=== PATIENT | male | born 1930 | race Caucasian/White ===

== ENCOUNTER 2017-10-29 11:51 | Inpatient (IN) ==
--- NOTE | 2017-10-29 13:19 | ED ---
HPI General Chief complaint: Skin/Abscess/Foreign Body Stated complaint: animal bite/skin Time Seen by Provider: 10/29/17 12:48 Source: patient Limitations: no limitations History of Present Illness HPI narrative: 88-year-old male presents to the emergency department for evaluation of erythema and pain to his left medial ankle that started on , 3 days ago. Patient was seen at [facility] on Monday and had an ultrasound, chest x-ray, labs completed. He was discharged prescription for clindamycin which he took yesterday. He is here with his daughter. She states that she feels the erythema has worsened, but the patient states that has improved and the pain has much improved. He reports shortness of breath which he states is chronic for him due to COPD. He is on oxygen at home. He states the pain to his left ankle is minimal, 2/10, aching, worse with ambulation and movement. Patient denies any chest pain. No other symptoms or complaints. Moderate severity. MD complaint: discoloration (erythema) Onset (ago): day(s) (3) Location: L foot Severity: moderate Severity scale (1-10): 2 Quality: aching Pain Consistency: constant Relieving factors: immobilization and medication Exacerbating factors: movement Associated symptoms: shortness of breath Treatments prior to arrival: antibiotic (currently on clindamycin) Related Data Home Medications Medication Instructions Recorded Confirmed albuterol sulfate [ProAir HFA] 2 puff INHALATION BID 10/29/17 10/29/17 amlodipine [Norvasc] 5 mg PO DAILY 10/29/17 10/29/17 aspirin [Aspirin Low Dose] 81 mg PO DAILY 10/29/17 10/29/17 budesonide-formoterol [Symbicort] 2 puff INHALATION BID 10/29/17 10/29/17 clindamycin HCl 150 mg PO BID 10/29/17 10/29/17 metoprolol tartrate [Lopressor] 50 mg PO BID 10/29/17 10/29/17 ranitidine HCl [Zantac] 150 mg PO DAILY 10/29/17 10/29/17 tamsulosin [Flomax] 0.4 mg PO DAILY 10/29/17 10/29/17 Allergies Allergy/AdvReac Type Severity Reaction Status Date / Time Penicillins Allergy Severe Hives Verified 10/29/17 13:04 Review of Systems ROS Unobtainable All other systems reviewed negative except as stated in HPI [facility] History History Provided By: Patient and Family Member Medical History Medical History COPD (chronic obstructive pulmonary disease) (Acute) Hypertension (Acute) Lung cancer (Acute) Prostate disorder (Acute) Surgical History Surgical History H/O hernia repair (Acute) History of lung surgery (Acute) History of penile implant (Acute) Family History Family History Other Family history of acute myocardial infarction Family history of diabetes mellitus Social History Social History Substance History: No History of Abuse Second Hand Smoke Exposure: No Smoking Status: Former smoker Tobacco Type: Cigarettes Packs Per Day: 1 Cigarettes Per Day: 20.0 Number of Pack-Years (if former smoker): 71 Smoking End Date: 2002 How Often Do You Have a Drink Containing Alcohol: 4 or more times a week (2-3 beer daily, buys 18 pack) Recent Travel in [facility] within the Last 8 Weeks: No Recent Out of Country Travel within the Last 8 Weeks: No Exam Const General: cooperative, comfortable and no acute distress Nutritional Appearance: average body habitus Orientation: alert and awake HENMT Head: normal to inspection Eyes General: appearance normal, both eyes and all related structures Chest Chest: normal inspection of the chest Resp Effort & Inspection: able to speak in complete sentences Auscultation: wheezes expiratory wheezes and scattered wheezes Cardio Rate: regular rate Rhythm: regular rhythm GI Inspection: normal to inspection Palpation: soft and nontender Skin Trauma: no lacerations or abrasions and no punctures noted Neuro General: alert and awake Speech: speech normal Motor: muscle tone normal throughout Extrem General: full ROM and no calf tenderness Left lower extremity: full ROM and ankle Details: tenderness, swelling, normal ROM and other (erythema to left medial ankle) Psych Appearance: grossly normal Speech and Movement: speech and movement normal Affect: normal affect Attitude: cooperative Course Initial Documented Vital Signs Temperature 97.6 F 10/29/17 11:55 Pulse Rate 81 10/29/17 11:55 Respiratory Rate 15 10/29/17 11:55 Blood Pressure 130/60 10/29/17 11:55 Pulse Oximetry 91 L 10/29/17 11:55 Last Documented Vital Signs Temperature 98.0 F 10/29/17 16:00 Pulse Rate 76 10/29/17 16:52 Respiratory Rate 18 10/29/17 16:52 Blood Pressure 138/81 10/29/17 16:00 Pulse Oximetry 97 10/29/17 16:51 Medical Decision Making MDM Narrative Medical decision making narrative: A 8-year-old male presents to the emergency department for evaluation of erythema, swelling, pain to left medial ankle. He was seen on Monday at [facility] was placed on clindamycin. The patient states his symptoms are improving. He also reports shortness of breath. EKG, CBC, CMP, magnesium, CK, troponin, PTT, PT/INR, lactic acid, blood cultures 2, ultrasound of the left lower extremity, chest x-ray ordered and pending. Patient is given DuoNeb. EKG shows SR, HR 78, RBBB. CBC shows leukocytosis of 13.7, slight anemia of hgb 11.7, HCT 35.2. CMP shows hyperglycemia of 166, BUN 43, creatinine of 1.94. Magnesium is 2.2. CK is 55. Troponin is less than 0.02. Lactic acid is 2.5. PTT is 28.3. PT/INR is 10.2/1.0. US is negative for DVT. Chest x- ray was declined by patient as he just recently had a normal chest x-ray on Monday at [facility]. Dr. Ta, vascular surgeon, was in the pod when he heard the daughter talking about wanting to see a vascular surgeon. He examined patient and agrees the patient does not have an emergency vascular problem. He recommends IV antiboitics for cellulitis. Patient is given NS 1 L IV bolus, Vancomycin 1 gm IV. [place] hospitalists will be paged for admission. Lab Data Result diagrams: 10/29/17 13:15 10/29/17 13:15 Lab Results 10/29/17 10/29/17 10/29/17 Range/Units 13:15 13:15 13:15 WBC 13.7 H (4.0-11.0) th/mm3 RBC 3.88 L (4.50-5.90) mil/mm3 Hgb 11.7 L (13.0-17.0) gm/dL Hct 35.2 L (39.0-51.0) % MCV 90.7 (80.0-100.0) fL MCH 30.2 (27.0-34.0) pg MCHC 33.3 (32.0-36.0) % RDW 14.4 (11.6-17.2) % Plt Count 187 (150-450) th/mm3 MPV 9.5 (7.0-11.0) fL Neut % (Auto) 86.2 H (16.0-70.0) % Lymph % (Auto) 7.1 L (9.0-44.0) % [place] % (Auto) 6.6 (0.0-8.0) % Eos % (Auto) 0.0 (0.0-4.0) % Baso % (Auto) 0.1 (0.0-2.0) % Neut # (Auto) 11.8 H (1.8-7.7) th/mm3 Lymph # (Auto) 1.0 (1.0-4.8) th/mm3 [place] # (Auto) 0.9 (0.0-0.9) th/mm3 Eos # (Auto) 0.0 (0.0-0.4) th/mm3 Baso # (Auto) 0.0 (0.0-0.2) th/mm3 WBC Differential . Differential Comment Auto diff final PT (9.8-11.6) sec INR Ratio APTT (24.3-30.1) sec Sodium 140 (136-145) meq/L Potassium 4.9 (3.5-5.1) meq/L Chloride 105 (98-107) meq/L Carbon Dioxide 26.1 (21.0-32.0) meq/L Anion Gap 9 (5-15) meq/L BUN 43 H (7-18) mg/dL Creatinine 1.94 H (0.60-1.30) mg/dL Estimated GFR 33 L (>89) mL/min Random Glucose 166 H (74-106) mg/dL Lactic Acid 2.5 H (0.4-2.0) mmol/L Calcium 9.7 (8.5-10.1) mg/dL Magnesium (1.5-2.5) mg/dL Total Bilirubin 0.3 (0.2-1.0) mg/dL AST 12 L (15-37) U/L ALT 14 (12-78) U/L Alkaline Phosphatase 62 (45-117) U/L Total Creatine Kinase (39-308) U/L Troponin I (0.02-0.05) ng/mL Total Protein 7.6 (6.4-8.2) g/dL Albumin 3.0 L (3.4-5.0) g/dL 10/29/17 10/29/17 10/29/17 Range/Units 13:15 13:15 16:30 WBC (4.0-11.0) th/mm3 RBC (4.50-5.90) mil/mm3 Hgb (13.0-17.0) gm/dL Hct (39.0-51.0) % MCV (80.0-100.0) fL MCH (27.0-34.0) pg MCHC (32.0-36.0) % RDW (11.6-17.2) % Plt Count (150-450) th/mm3 MPV (7.0-11.0) fL Neut % (Auto) (16.0-70.0) % Lymph % (Auto) (9.0-44.0) % [place] % (Auto) (0.0-8.0) % Eos % (Auto) (0.0-4.0) % Baso % (Auto) (0.0-2.0) % Neut # (Auto) (1.8-7.7) th/mm3 Lymph # (Auto) (1.0-4.8) th/mm3 [place] # (Auto) (0.0-0.9) th/mm3 Eos # (Auto) (0.0-0.4) th/mm3 Baso # (Auto) (0.0-0.2) th/mm3 WBC Differential Differential Comment PT 10.2 (9.8-11.6) sec INR 1.0 Ratio APTT 28.3 (24.3-30.1) sec Sodium (136-145) meq/L Potassium (3.5-5.1) meq/L Chloride (98-107) meq/L Carbon Dioxide (21.0-32.0) meq/L Anion Gap (5-15) meq/L BUN (7-18) mg/dL Creatinine (0.60-1.30) mg/dL Estimated GFR (>89) mL/min Random Glucose (74-106) mg/dL Lactic Acid 1.1 (0.4-2.0) mmol/L Calcium (8.5-10.1) mg/dL Magnesium 2.2 (1.5-2.5) mg/dL Total Bilirubin (0.2-1.0) mg/dL AST (15-37) U/L ALT (12-78) U/L Alkaline Phosphatase (45-117) U/L Total Creatine Kinase 55 (39-308) U/L Troponin I Less than 0.02 L (0.02-0.05) ng/mL Total Protein (6.4-8.2) g/dL Albumin (3.4-5.0) g/dL Imaging Data Radiologist's impression: ITS Impressions Venous Doppler Study 10/29/17 13:08 CONCLUSION: The study is negative for lower extremity deep venous thrombosis. Discharge Plan Discharge Disposition Patient Disposition: 30 Still Patient Physicians Team ED Provider: Rupal Hurtado ED Midlevel Provider: Jane Meredith Primary Care Provider: Stefanie Love Attending Provider: Diane Gustafson Other Providers: Flavia Ta Discharge Interventions Interventions: ED Discharge Assessment Last Done: 10/29/17 18:07 Vital Signs Last Done: 10/29/17 16:00 Status ED Status: Left Department Discharge Information Discharge Date/Time: 10/29/17 18:05
[2017-10-29 13:34] LABS: Baso % (Auto) 0.1 % (0.0-2.0); Hematocrit 35.2 % (39.0-51.0); Hemoglobin 11.7 gm/dL (13.0-17.0); Lymph % (Auto) 7.1 % (9.0-44.0); Mean Corpuscular HGB Conc 33.3 % (32.0-36.0); Mean Corpuscular Hemoglobin 30.2 pg (27.0-34.0); Mean Corpuscular Volume 90.7 fL (80.0-100.0); Mean Platelet Volume 9.5 fL (7.0-11.0); Mono # (Auto) 0.9 th/mm3 (0.0-0.9); Mono % (Auto) 6.6 % (0.0-8.0); Neut # (Auto) 11.8 th/mm3 (1.8-7.7); Neut % (Auto) 86.2 % (16.0-70.0); Platelet Count 187 th/mm3 (150-450); Red Blood Count 3.88 mil/mm3 (4.50-5.90); Red Cell Distribution Width 14.4 % (11.6-17.2); White Blood Count 13.7 th/mm3 (4.0-11.0)
[2017-10-29 13:42] LABS: Activated Partial Thrombo Time 28.3 sec (24.3-30.1); Prothrombin Time 10.2 sec (9.8-11.6)
[2017-10-29 14:08] LABS: Alanine Aminotransferase 14 U/L (12-78); Anion Gap 9 meq/L (5-15); Aspartate Aminotransferase 12 U/L (15-37); Blood Urea Nitrogen 43 mg/dL (7-18); Calcium 9.7 mg/dL (8.5-10.1); Carbon Dioxide 26.1 meq/L (21.0-32.0); Chloride 105 meq/L (98-107); Glomerular Filtration Rate 33 mL/min (>89); Glucose,Random 166 mg/dL (74-106); Potassium 4.9 meq/L (3.5-5.1); Sodium 140 meq/L (136-145)
[2017-10-29 14:11] LABS: Alkaline Phosphatase 62 U/L (45-117); Total Protein 7.6 g/dL (6.4-8.2)
--- NOTE | 2017-10-29 14:21 | P.PNCA ---
- Note Subjective/Hospital Course:: 10/29/2017 88-year-old gentleman was bitten by a cat week or 2 ago in the area of the left calf develop redness which then receded now came back he was seen at [facility] 3 days ago at which point according to his daughter it was a complete circus and anarchy and according to her she will never go to that hellhole again Now patient comes to our hospital with the cellulitis and erythema of the left leg extending from the ankle up to above the knee Physical examination reveals bilateral pretibial edema which is mild to moderate but there is clearly cellulitis and edema on the left more prominent than on the right No open wounds are noted Vascular exam reveals palpable femoral popliteal dorsalis pedis and posterior tibial pulses bilaterally despite about 60 year history of smoking. Capillary refill is intact Patient does not have acute vascular deficit or any vascular condition that would require immediate intervention. As far as cellulitis is concerned I would leave that up to medical doctors but considering that cat scratch disease can be a fairly recalcitrant problem and patient has not improved with p.o. antibiotics I would not be opposed to having this patient admitted and treated with IV antibiotics keeping a closer eye on what is transpiring We will follow Thanks Reed Objective:: Vital Signs - 24 hr 10/29/17 11:55 10/29/17 13:00 10/29/17 14:11 Temperature 97.6 F 98.1 F Pulse Rate 81 76 Respiratory Rate 15 20 Blood Pressure 130/60 134/70 Pulse Oximetry 91 L 98 98 Labs:: Laboratory Results - last 12 hr 10/29/17 10/29/17 10/29/17 13:15 13:15 13:15 WBC 13.7 H RBC 3.88 L Hgb 11.7 L Hct 35.2 L MCV 90.7 MCH 30.2 MCHC 33.3 RDW 14.4 Plt Count 187 MPV 9.5 Neut % (Auto) 86.2 H Lymph % (Auto) 7.1 L [place] % (Auto) 6.6 Eos % (Auto) 0.0 Baso % (Auto) 0.1 Neut # (Auto) 11.8 H Lymph # (Auto) 1.0 [place] # (Auto) 0.9 Eos # (Auto) 0.0 Baso # (Auto) 0.0 WBC Differential . Differential Comment Auto diff final PT 10.2 INR 1.0 APTT 28.3 Sodium 140 Potassium 4.9 Chloride 105 Carbon Dioxide 26.1 Anion Gap 9 BUN 43 H Creatinine 1.94 H Estimated GFR 33 L Random Glucose 166 H Calcium 9.7 Total Bilirubin 0.3 AST 12 L ALT 14 Alkaline Phosphatase 62 Total Protein 7.6 Albumin 3.0 L Result Diagrams: 10/29/17 13:15 10/29/17 13:15
[2017-10-29] MEDS ORDERED: Vancomycin Inj 1 GM/200 ML PIGGYBACK IV.SIG ONE (14:22)
--- NOTE | 2017-10-29 14:26 | US ---
EXAM DATE: 10/29/2017 2:19 PM EDT AGE/SEX: 88 years / Male INDICATIONS: Left leg pain. CLINICAL DATA: This is the patient's initial encounter. Patient reports that signs and symptoms have been present for 3 days and indicates a pain score of 5/10. MEDICAL/SURGICAL HISTORY: Hypertension. Chronic obstructive pulmonary disease. Lung cancer. Pr ostate disorder. Hernia. . Hernia repair. Lung surgery. Penile implant. COMPARISON: No prior exams available for comparison. TECHNIQUE: Venous ultrasound of both lower extremities was performed from the inguinal ligament to t he proximal calf. Real-time, color Doppler and spectral tracing, compression and augmentation techni ques were used. FINDINGS: Normal compression of the deep venous system from the inguinal region to the proximal calf . No echogenic clot is seen. Normal response of the venous system to augmentation and respiration. CONCLUSION: The study is negative for lower extremity deep venous thrombosis. Electronically signed by: Omari Quiroz MD 10/29/2017 2:24 PM EDT
[2017-10-29] MEDS ORDERED: Vancomycin Inj 1,000 MG in Sodium Chlor 0.9% Inj 250 ML IV.SIG ONE (14:30)
[2017-10-29] MEDS ORDERED: Sod Chloride 0.9% Inj 1,000 ML IV.SIG ONE (14:54)
[2017-10-29 16:12] LABS: Creatine Kinase 55 U/L (39-308); Magnesium 2.2 mg/dL (1.5-2.5)
[2017-10-29] MEDS ORDERED: Acetaminophen 325 MG Tablet PO PRN (18:02)
[2017-10-29] MEDS ORDERED: Bisacodyl 10 MG Supp RECTAL PRN (18:02)
--- NOTE | 2017-10-29 18:06 | P.HP ---
History of Present Illness Service: [facility] Primary Care Physician: Stefanie Love DO Chief Complaint: Left ankle pain, left ankle erythema, edema History of Present Illness: Patient is an 88-year-old male with primary medical history of COPD, HTN, lung cancer with thoracotomy, prostate disorder who came into the hospital for evaluation of left ankle erythema, edema, pain. Patient states that he was bitten by their cat at the back of his leg in August which he did not pay attention to. States that he noticed increased edema, erythema and pain on the left ankle. States that it impedes his mobility. As per patient, this has been an ongoing problem for the past several weeks, where in he went to the [place] and he was given antibiotics for 2 weeks and go to the emergency department if it has not improved. Last Monday patient went to [facility], as he states that the erythema, edema, pain has not significantly improved. He had an ultrasound, chest x-ray, and labs during his emergency room visit and he was sent home with clindamycin. Patient states that his ankle movement has improved, pain has also improved with the use of antibiotics but was concerned that it impedes his walking. Pain is 5/10, dull, aching, aggravated by ambulation and movement, relieved by pain medication. Reports use of oxygen 24/, patient has right lung nodules, left thoracotomy. Chronic cough, chronic sputum production that is whitish has been reported. Otherwise, denies chest pain, palpitations, headaches, dizziness. Denies fevers , chills, n/v/d. Denies dysuria. Venous Doppler negative WBC 13.7, lactic acid 2.5, creatinine 1.94 - Diagnosis (1) Cellulitis of left ankle - Inpatient Certification If this patient has been admitted as an Inpatient: I certify that the inpatient services were ordered in accordance with Medicare regulations governing the order. This includes certification that hospital inpatient services are reasonable and necessary and in the case of services not specified as inpatient-only under 42 CFR 419.22(n), that they are appropriately provided as inpatient services in accordance to with the 2-midnight benchmark under 43 CFR 412.3(e) Estimated Total Length of Stay (Days): 3 Plans for Post Hospital Care: Home Review of Systems All other systems reviewed negative except as stated in [facility] - History History Provided By: Patient, Family Member - Medical History Medical History: Medical History (Last Reviewed 10/29/17 @ 13:34 by Marialuisa Lomeli) COPD (chronic obstructive pulmonary disease) Hypertension Lung cancer Prostate disorder - Surgical History Surgical History: Surgical History (Last Updated 10/29/17 @ 13:37 by Marialuisa Lomeli) H/O hernia repair History of lung surgery History of penile implant - Family History Family History: Family History (Last Updated 10/29/17 @ 17:49 by THEO Brasher) Other Family history of acute myocardial infarction Family history of diabetes mellitus - Tobacco History Second Hand Smoke Exposure: No Tobacco Use In Past 30 Days: No Smoking Status: Former smoker Tobacco Type: Cigarettes Packs Per Day: 1 Number of Pack Years (if former smoker): 71 Smoking End Date: 2002 - Alcohol History How Often Do You Have a Drink Containing Alcohol: 4 or more times a week (2-3 beer daily, buys 18 pack) - Substance Use History Substance History: No History of Abuse - Travel History Recent Travel in the [place] Within the Last 8 Weeks: No Recent Travel Out of the Country Within the Last 8 Weeks: No - Immunization History Tetanus Immunization: >5 Years Hx Influenza Vaccine This Season: No Medications and Allergies Active Medications: Active Medications Sodium Chloride (Ns Flush) 2 ml IV.FLUSH PRN PRN PRN Reason: FLUSH AFTER USING IV ACCESS Last Admin: 10/29/17 13:18 Dose: 2 ml Allergies Allergy/AdvReac Type Severity Reaction Status Date / Time Penicillins Allergy Severe Hives Verified 10/29/17 13:04 Home Medications Medication Instructions Recorded Confirmed Type albuterol sulfate [ProAir HFA] 2 puff INHALATION BID 10/29/17 10/29/17 History amlodipine [Norvasc] 5 mg PO DAILY 10/29/17 10/29/17 History aspirin [Aspirin Low Dose] 81 mg PO DAILY 10/29/17 10/29/17 History budesonide-formoterol [Symbicort] 2 puff INHALATION BID 10/29/17 10/29/17 History clindamycin HCl 150 mg PO BID 10/29/17 10/29/17 History metoprolol tartrate [Lopressor] 50 mg PO BID 10/29/17 10/29/17 History ranitidine HCl [Zantac] 150 mg PO DAILY 10/29/17 10/29/17 History tamsulosin [Flomax] 0.4 mg PO DAILY 10/29/17 10/29/17 History Exam Vital signs: Vital Signs 10/29/17 11:55 10/29/17 13:00 10/29/17 14:11 Temperature 97.6 F 98.1 F Pulse Rate 81 76 Respiratory Rate 15 20 Blood Pressure 130/60 134/70 Pulse Oximetry 91 L 98 98 10/29/17 16:00 10/29/17 16:51 10/29/17 16:52 Temperature 98.0 F Pulse Rate 78 76 Respiratory Rate 22 18 Blood Pressure 138/81 Pulse Oximetry 97 97 Intake & Output 10/28/17 10/29/17 10/29/17 18:59 06:59 18:59 Weight 70.3 kg Narrative: GENERAL: This is a well-nourished, well-developed patient, in no apparent distress. SKIN: Warm and dry. HEENT: Normocephalic. Pupils equal round and reactive. Nose without bleeding. Airway patent. NECK: Trachea midline. No JVD. Supple. CARDIOVASCULAR: Regular rate and rhythm without murmurs, gallops, or rubs. RESPIRATORY: Moderate air entry. Diminished left side. Expiratory wheezes. GASTROINTESTINAL: Abdomen soft, non-tender, nondistended. Bowel Sounds normoactive x4. MUSCULOSKELETAL: Extremities without clubbing, cyanosis. Left ankle trace edema , erythema present, warm to touch NEUROLOGICAL: Awake and alert. Oriented to place, person. No focal neuro deficit. Moves all extremities. Normal speech. Results - Labs CBC & Chem 7: 10/29/17 13:15 10/29/17 13:15 Labs: Laboratory Results - last 24 hr 10/29/17 10/29/17 10/29/17 13:15 13:15 13:15 WBC 13.7 H RBC 3.88 L Hgb 11.7 L Hct 35.2 L MCV 90.7 MCH 30.2 MCHC 33.3 RDW 14.4 Plt Count 187 MPV 9.5 Neut % (Auto) 86.2 H Lymph % (Auto) 7.1 L [place] % (Auto) 6.6 Eos % (Auto) 0.0 Baso % (Auto) 0.1 Neut # (Auto) 11.8 H Lymph # (Auto) 1.0 [place] # (Auto) 0.9 Eos # (Auto) 0.0 Baso # (Auto) 0.0 WBC Differential . Differential Comment Auto diff final PT INR APTT Sodium 140 Potassium 4.9 Chloride 105 Carbon Dioxide 26.1 Anion Gap 9 BUN 43 H Creatinine 1.94 H Estimated GFR 33 L Random Glucose 166 H Lactic Acid 2.5 H Calcium 9.7 Magnesium Total Bilirubin 0.3 AST 12 L ALT 14 Alkaline Phosphatase 62 Total Creatine Kinase Troponin I Total Protein 7.6 Albumin 3.0 L 10/29/17 10/29/17 10/29/17 13:15 13:15 16:30 WBC RBC Hgb Hct MCV MCH MCHC RDW Plt Count MPV Neut % (Auto) Lymph % (Auto) [place] % (Auto) Eos % (Auto) Baso % (Auto) Neut # (Auto) Lymph # (Auto) [place] # (Auto) Eos # (Auto) Baso # (Auto) WBC Differential Differential Comment PT 10.2 INR 1.0 APTT 28.3 Sodium Potassium Chloride Carbon Dioxide Anion Gap BUN Creatinine Estimated GFR Random Glucose Lactic Acid 1.1 Calcium Magnesium 2.2 Total Bilirubin AST ALT Alkaline Phosphatase Total Creatine Kinase 55 Troponin I Less than 0.02 L Total Protein Albumin - Imaging Impressions Venous Doppler Study 10/29/17 13:08 CONCLUSION: The study is negative for lower extremity deep venous thrombosis. Caprini VTE Risk Assessment Caprini VTE Risk Assessment: Moderate/High Risk (score >= 2) Caprini Risk Assessment Model: Point Value = 1 Point Value = 2 Point Value = 3 Point Value = 5 Age 41-60 Minor surgery BMI > 25 kg/m2 Swollen legs Varicose veins or History of unexplained or recurrent spontaneous Oral contraceptives or hormone replacement Sepsis (< 1 month) Serious lung disease, including pneumonia (< 1 month) Abnormal pulmonary function Acute myocardial infarction Congestive heart failure (< 1 month) History of inflammatory bowel disease Medical patient at bed rest Age 61-74 Arthroscopic surgery Major open surgery (> 45 min) Laparoscopic surgery (> 45 min) Malignancy Confined to bed (> 72 hours) Immobilizing plaster cast Central venous access Age >= 75 History of VTE Family history of VTE Factor V Leiden Prothrombin [id number] Lupus anticoagulant Anticardiolipin antibodies Elevated serum homocysteine Heparin-induced thrombocytopenia Other congenital or acquired thrombophilia Stroke (< 1 month) Elective arthroplasty Hip, pelvis, or leg fracture Acute spinal cord injury (< 1 month) Prophylaxis Regimen: Total Risk Factor Score Risk Level Prophylaxis Regimen 0-1 Low Early ambulation 2 Moderate Order ONE of the following: *Sequential Compression Device (SCD) *Heparin 5000 units SQ BID 3-4 Higher Order ONE of the following medications: *Heparin 5000 units SQ TID *Enoxaparin/Lovenox 40 mg SQ daily (WT < 150 kg, CrCl > 30 mL/min) *Enoxaparin/Lovenox 30 mg SQ daily (WT < 150 kg, CrCl > 10-29 mL/min) *Enoxaparin/Lovenox 30 mg SQ BID (WT < 150 kg, CrCl > 30 mL/min) AND/OR *Sequential Compression Device (SCD) 5 or more Highest Order ONE of the following medications: *Heparin 5000 units SQ TID (Preferred with Epidurals) *Enoxaparin/Lovenox 40 mg SQ daily (WT < 150 kg, CrCl > 30 mL/min) *Enoxaparin/Lovenox 30 mg SQ daily (WT < 150 kg, CrCl > 10-29 mL/min) *Enoxaparin/Lovenox 30 mg SQ BID (WT < 150 kg, CrCl > 30 mL/min) AND *Sequential Compression Device (SCD) Assessment and Plan - Assessment (1) Cellulitis of left ankle Code(s): L03.116 - Cellulitis of left lower limb Status: Acute - Plan Patient is an 88-year-old male with primary medical history of COPD, HTN, lung cancer with thoracotomy, prostate disorder who came into the hospital for evaluation of left ankle erythema, edema, pain. SIRS, sepsis secondary to left ankle cellulitis Severe sepsis, organ dysfunction -WBC 13.7, lactic acid 2.5, creatinine 1.94 -Monitor Labs -US venous Doppler negative -Check Blood Cultures, follow-up results -Lactic Acid 2.5, repeat 1.1 -IV Fluids -IV Antibiotics Vancomycin, continue -Telemetry -Supportive Care Tylenol for fevers. Pain management with [place], IV morphine breakthrough pain -CV surgery consulted appreciate recommendations. -PT eval and treat COPD, history of lung cancer Mild exacerbation -Moderate expiratory wheezes -Continue O2 nasal cannula to maintain O2 sat greater than 90% -Duo nebs, Symbicort twice daily -Monitor respiratory status HTN -Continue with home medications amlodipine 5 mg daily, ASA 81 mg daily, metoprolol 50 mg twice daily -Monitor BP trend BPH -Continue home medication Flomax DVT prop SCDs Code Status: Full Code Discussed Condition With: Patient, nursing Discharge Planning: Plan to DC home when clinically improved.
[2017-10-29] MEDS ORDERED: Naloxone Inj 0.4 MG/ML Vial IV.PUSH PRN (18:09)
[2017-10-29] MEDS ORDERED: Morphine Inj 4 MG/ML Vial IV.PUSH PRN (18:09)
[2017-10-29] MEDS ORDERED: Vancomycin Consult Pharmacy 1 EACH OTHER SCH (18:13)
[2017-10-29] MEDS: Sod Chloride 0.9% Inj 1,000 ML IV.CONT SCH (21:56)
[2017-10-29] MEDS: Metoprolol Tartrate 50 MG Tablet PO SCH (21:57)
[2017-10-29] MEDS: Senna/Docusate Sodium 8.6/50 MG Tablet PO SCH (21:57)
[2017-10-29] MEDS: Budesonide-Formoterol 160/4.5 MCG 6 GM Inhaler INH SCH (21:57)
[2017-10-29] MEDS ORDERED: LORazepam 1 MG Tablet PO PRN (22:16)
[2017-10-29] MEDS ORDERED: Haloperidol Inj 5 MG/ML Ampul IV.PUSH PRN (22:16)
[2017-10-29] MEDS: MethylPREDNISolone Sod Succinate Inj 40 MG/ML Vial IV.PUSH SCH (23:38)
[2017-10-30] MEDS ORDERED: Vancomycin Inj 1 GM/200 ML PIGGYBACK IV.SIG SCH (02:00)
--- NOTE | 2017-10-30 05:11 | XR ---
EXAM DATE: 10/30/2017 4:08 AM EDT AGE/SEX: 88 years / Male INDICATIONS: Shortness of breath. CLINICAL DATA: This is the patient's initial encounter. Patient reports that signs and symptoms have been present for 1 day and indicates a pain score of 0/10. MEDICAL/SURGICAL HISTORY: . Hypertension. Chronic obstructive pulmonary disease. Lung cancer. P rostate disorder. Hernia. . Hernia repair. Lung surgery. Penile implant COMPARISON: No prior exams available for comparison. FINDINGS: There is elevation and blunting of the costophrenic angle on the left side. The right hemidiaphragm i s well delineated. There are small nodular opacity seen at the periphery of both lungs measuring 6 mm or less. The heart is normal size. Mild curvature of the midthoracic spine convex towards the left. CONCLUSION: 1. Probable small left pleural effusion. 2. Multiple nodular densities 6 mm or less in both lungs. Electronically signed by: Serafin Lopez MD 10/30/2017 5:09 AM EDT
[2017-10-30] MEDS: MethylPREDNISolone Sod Succinate Inj 40 MG/ML Vial IV.PUSH SCH ×3 (05:40→18:46)
[2017-10-30 06:23] LABS: Baso % (Auto) 0.1 % (0.0-2.0); Hematocrit 31.3 % (39.0-51.0); Hemoglobin 10.6 gm/dL (13.0-17.0); Lymph # (Auto) 0.4 th/mm3 (1.0-4.8); Lymph % (Auto) 4.9 % (9.0-44.0); Mean Corpuscular HGB Conc 33.7 % (32.0-36.0); Mean Corpuscular Hemoglobin 30.6 pg (27.0-34.0); Mean Corpuscular Volume 90.8 fL (80.0-100.0); Mean Platelet Volume 9.6 fL (7.0-11.0); Mono # (Auto) 0.1 th/mm3 (0.0-0.9); Mono % (Auto) 1.6 % (0.0-8.0); Neut # (Auto) 7.8 th/mm3 (1.8-7.7); Neut % (Auto) 93.4 % (16.0-70.0); Platelet Count 182 th/mm3 (150-450); Red Blood Count 3.45 mil/mm3 (4.50-5.90); Red Cell Distribution Width 14.2 % (11.6-17.2); White Blood Count 8.4 th/mm3 (4.0-11.0)
[2017-10-30 06:44] LABS: Albumin 2.6 g/dL (3.4-5.0); Anion Gap 9 meq/L (5-15); Aspartate Aminotransferase 13 U/L (15-37); Blood Urea Nitrogen 43 mg/dL (7-18); Carbon Dioxide 23.1 meq/L (21.0-32.0); Chloride 110 meq/L (98-107); Glomerular Filtration Rate 41 mL/min (>89); Glucose,Random 244 mg/dL (74-106); Potassium 4.4 meq/L (3.5-5.1); Sodium 142 meq/L (136-145)
[2017-10-30 06:45] LABS: Alanine Aminotransferase 14 U/L (12-78)
[2017-10-30 06:47] LABS: Alkaline Phosphatase 54 U/L (45-117); Total Protein 6.5 g/dL (6.4-8.2)
[2017-10-30] MEDS: amLODIPine 5 MG Tablet PO SCH (09:54)
[2017-10-30] MEDS: Metoprolol Tartrate 50 MG Tablet PO SCH ×2 (09:54→21:32)
[2017-10-30] MEDS: Famotidine 20 MG Tablet PO SCH (09:54)
[2017-10-30] MEDS: Senna/Docusate Sodium 8.6/50 MG Tablet PO SCH ×2 (09:54→21:33)
[2017-10-30] MEDS: Budesonide-Formoterol 160/4.5 MCG 6 GM Inhaler INH SCH ×2 (09:56→21:32)
--- NOTE | 2017-10-30 10:39 | ECG ---
Date Performed: 10/29/2017 Time Performed: 13:21:55 PTAGE: 88 years EKG: Sinus rhythm MARKED LEFT AXIS DEVIATION RIGHT BUNDLE BRANCH BLOCK ABNORMAL ECG NO PREVIOUS TRACING DOCTOR: Niraj García Interpretating Date/Time 10/30/2017 10:36:57
[2017-10-30] MEDS: Sod Chloride 0.9% Inj 1,000 ML IV.CONT SCH (11:52)
--- NOTE | 2017-10-30 12:34 | P.PN ---
Subjective Interval history: Nursing denies any deterioration since last night. Patient's daughter feels that his erythema is much improved since admission. Is asking what we can do about his shortness of breath. Physical Exam Vital signs: Vital Signs 10/29/17 13:00 10/29/17 14:11 10/29/17 16:00 Temperature 98.1 F 98.0 F Pulse Rate 76 78 Respiratory Rate 20 22 Blood Pressure 134/70 138/81 Pulse Oximetry 98 98 97 10/29/17 16:51 10/29/17 16:52 10/29/17 20:00 Temperature 97.5 F L Pulse Rate 76 81 Respiratory Rate 18 18 Blood Pressure 119/61 Pulse Oximetry 97 96 10/30/17 00:00 10/30/17 08:05 10/30/17 08:13 Temperature 97.6 F 97.2 F L Pulse Rate 87 91 H Respiratory Rate 18 18 Blood Pressure 141/61 H 149/78 H Pulse Oximetry 95 96 Intake & Output 10/29/17 10/30/17 10/30/17 18:59 06:59 18:59 Intake Total 1250 / 1250 1000 / 1000 Output Total 0 / 0 Balance 1250 / 1250 0 / 0 1000 / 1000 Weight 70.3 kg Intake: IV 1250 / 1250 1000 / 1000 NS Inj 1,000 ML @ 75 mls/hr IV. 1000 / 1000 CONT .[id number] [facility] Rx#:[id number] NS Inj 1,000 ML @ Wide Open IV. 1000 / 1000 SIG BOLUS ONE Rx#:[id number] Vancomycin Inj 1,000 MG In NS 250 / 250 Inj 250 ML @ 200 mls/hr IV.SIG ONCE ONE Rx#:[id number] Output: Urine 0 / 0 Other: # Voids 3 Narrative: Diminished breath sounds in the bases, mild conversive dyspnea Mild erythema noted only on medial aspect of hindfoot including ankle joint no veda edema noted on the foot itself Results - Labs CBC & Chem 7: 10/30/17 04:32 10/30/17 04:32 Laboratory Results - last 24 hr 10/29/17 10/29/17 10/29/17 13:15 13:15 13:15 WBC 13.7 H RBC 3.88 L Hgb 11.7 L Hct 35.2 L MCV 90.7 MCH 30.2 MCHC 33.3 RDW 14.4 Plt Count 187 MPV 9.5 Neut % (Auto) 86.2 H Lymph % (Auto) 7.1 L [place] % (Auto) 6.6 Eos % (Auto) 0.0 Baso % (Auto) 0.1 Neut # (Auto) 11.8 H Lymph # (Auto) 1.0 [place] # (Auto) 0.9 Eos # (Auto) 0.0 Baso # (Auto) 0.0 WBC Differential . Differential Comment Auto diff final PT INR APTT Sodium 140 Potassium 4.9 Chloride 105 Carbon Dioxide 26.1 Anion Gap 9 BUN 43 H Creatinine 1.94 H Estimated GFR 33 L Random Glucose 166 H Lactic Acid 2.5 H Calcium 9.7 Magnesium Total Bilirubin 0.3 AST 12 L ALT 14 Alkaline Phosphatase 62 Total Creatine Kinase Troponin I Total Protein 7.6 Albumin 3.0 L 10/29/17 10/29/17 10/29/17 13:15 13:15 16:30 WBC RBC Hgb Hct MCV MCH MCHC RDW Plt Count MPV Neut % (Auto) Lymph % (Auto) [place] % (Auto) Eos % (Auto) Baso % (Auto) Neut # (Auto) Lymph # (Auto) [place] # (Auto) Eos # (Auto) Baso # (Auto) WBC Differential Differential Comment PT 10.2 INR 1.0 APTT 28.3 Sodium Potassium Chloride Carbon Dioxide Anion Gap BUN Creatinine Estimated GFR Random Glucose Lactic Acid 1.1 Calcium Magnesium 2.2 Total Bilirubin AST ALT Alkaline Phosphatase Total Creatine Kinase 55 Troponin I Less than 0.02 L Total Protein Albumin 10/30/17 10/30/17 04:32 04:32 WBC 8.4 RBC 3.45 L Hgb 10.6 L Hct 31.3 L MCV 90.8 MCH 30.6 MCHC 33.7 RDW 14.2 Plt Count 182 MPV 9.6 Neut % (Auto) 93.4 H Lymph % (Auto) 4.9 L [place] % (Auto) 1.6 Eos % (Auto) 0.0 Baso % (Auto) 0.1 Neut # (Auto) 7.8 H Lymph # (Auto) 0.4 L [place] # (Auto) 0.1 Eos # (Auto) 0.0 Baso # (Auto) 0.0 WBC Differential . Differential Comment Auto diff final PT INR APTT Sodium 142 Potassium 4.4 Chloride 110 H Carbon Dioxide 23.1 Anion Gap 9 BUN 43 H Creatinine 1.61 H Estimated GFR 41 L Random Glucose 244 H Lactic Acid Calcium 9.0 Magnesium Total Bilirubin 0.2 AST 13 L ALT 14 Alkaline Phosphatase 54 Total Creatine Kinase Troponin I Total Protein 6.5 D Albumin 2.6 L Microbiology 10/29/17 13:15 Blood - Peripheral Aerobic Blood Culture - Preliminary No growth in 1 day 10/29/17 13:15 Blood - Peripheral Anaerobic Blood Culture - Preliminary No growth in 1 day 10/29/17 13:00 Blood - Peripheral Aerobic Blood Culture - Preliminary No growth in 1 day 10/29/17 13:00 Blood - Peripheral Anaerobic Blood Culture - Preliminary No growth in 1 day - Imaging Impressions Venous Doppler Study 10/29/17 13:08 CONCLUSION: The study is negative for lower extremity deep venous thrombosis. Chest X-Ray 10/30/17 00:00 CONCLUSION: 1. Probable small left pleural effusion. 2. Multiple nodular densities 6 mm or less in both lungs. Assessment and Plan - Assessment (1) Cellulitis of left ankle Code(s): L03.116 - Cellulitis of left lower limb Status: Acute - Plan Patient is an 88-year-old male with primary medical history of COPD, HTN, lung cancer with thoracotomy, prostate disorder who came into the hospital for evaluation of left ankle erythema, edema, pain. Severe sepsis, organ dysfunction -Blood cultures pending, likely all secondary to cellulitis -Continue IV fluids Cellulitis -Continue vancomycin, improving clinically -Ultrasound is negative for DVT -We will transition to clindamycin towards discharge -Continue PT, -Appreciate vascular surgery input, no further workup needed JEFFREY on CKD - continue IVFs, improving, bmp in AM SOB - likely copd exacerbation as well as secondary to left-sided pleural effusion which I independently noted on my review of the plain film Pleural effusion -Ultrasound-guided thoracentesis ordered COPD, history of lung cancer Mild exacerbation - Continue home O2 at 4 L Continue Solu-Medrol IV Continue albuterol and symbicort HTN -Continue with home medications amlodipine 5 mg daily, ASA 81 mg daily, metoprolol 50 mg twice daily BPH -Continue home medication Flomax lovenox
[2017-10-30] MEDS ORDERED: Lidocaine PF 1% Inj 30 ML Vial ONE (15:26)
--- NOTE | 2017-10-30 15:26 | XR ---
EXAM DATE: 10/30/2017 3:23 PM EDT AGE/SEX: 88 years / Male INDICATIONS: Post thoracentesis CLINICAL DATA: This is the patient's subsequent encounter. Patient reports that signs and symptoms h ave been present for 4 - 6 days and indicates a pain score of 0/10. MEDICAL/SURGICAL HISTORY: . Hypertension. Chronic obstructive pulmonary disease. Lung cancer. Prostate disorder. Hernia. . . Hernia repair. Lung surgery. COMPARISON: [facility] [place]ST 1V SINGLE AP, 10/30/2017. . FINDINGS: A single AP view of the chest demonstrates right basilar density. Left lung clear. Heart normal in si ze. The cardiomediastinal contours are unremarkable. Osseous structures are intact. CONCLUSION: No pneumothorax on the left status post thoracentesis. Electronically signed by: Lucian Resendez MD 10/30/2017 3:24 PM EDT
--- NOTE | 2017-10-30 15:45 | US ---
EXAM DATE: 10/30/2017 3:42 PM EDT AGE/SEX: 88 years / Male INDICATIONS: Left pleural effusion. CLINICAL DATA: This is the patient's initial encounter. Patient reports that signs and symptoms have been present for 4 - 6 days and indicates a pain score of 1/10. MEDICAL/SURGICAL HISTORY: . Hypertension. Chronic obstructive pulmonary disease. Lung cancer. P rostate disorder. Hernia. . Hernia repair. Lung surgery. Penile implant COMPARISON: No prior exams available for comparison. FLUID: Total volume of 4 cc cc of clear, yellow fluid was removed. Fluid was sent to lab for ordered studies. . . TECHNIQUE: Ultrasound guidance for thoracentesis. Thoracentesis. The risks, benefits, and alternatives to ultrasound guided thoracentesis were explained to the patien t in lay simple terms, including the risk of bleeding and infection. Written and verbal informed con sent was obtained. FINDINGS: Only a small amount of fluid is seen within the left pleural space. Appropriate area for left thoracentesis was marked under ultrasound guidance with the patient in the upright position. Overlying skin was prepped and draped in the usual sterile fashion and with local anesthetic, a dermatotomy was made with an 11 blade scalpel. A 6 [place] thoracentesis catheter was p laced in the pleural space and fluid was removed. Catheter was then removed and a sterile dressing a pplied. There were no immediate complications. The patient tolerated the procedure well and the left the ultrasound suite in stable condition. Chest radiograph is to be obtained. CONCLUSION: 1. Only 4 cc of straw-colored fluid aspirated for diagnostic purposes. Electronically signed by: Lucian Resendez MD 10/30/2017 3:44 PM EDT
[2017-10-30 18:09] LABS: Lymphocytes,Pleural Fluid 80 %; Mesothelial,Pleural Fluid 2 %; Monocytes,Pleural Fluid 15 %; Neutrophils,Pleural Fluid 1 %
[2017-10-30 18:10] LABS: RBC,Pleural Fluid 3638 /mm3 (0-0)
[2017-10-30] MEDS ORDERED: Vancomycin Consult Pharmacy 1 EACH OTHER SCH (20:00)
[2017-10-30] MEDS ORDERED: Enoxaparin Inj 30 MG/0.3 ML Syringe SQ SCH (20:00)
[2017-10-31] MEDS: MethylPREDNISolone Sod Succinate Inj 40 MG/ML Vial IV.PUSH SCH ×2 (00:59→05:57)
[2017-10-31] MEDS: Sod Chloride 0.9% Inj 1,000 ML IV.CONT SCH (00:59)
[2017-10-31 08:32] LABS: Carbon Dioxide 22.8 meq/L (21.0-32.0); Potassium 4.1 meq/L (3.5-5.1)
--- NOTE | 2017-10-31 09:28 | P.DCO ---
- Physical Therapy Order: Evaluate and treat - Occupational Therapy Order: Evaluate and treat - Home Health Nursing Order: Signs/symptoms of disease process, Oxygen administration education - Certification I have seen patient Bobby Reyna on 10/31/17. My clinical findings support the need for the requested home health care services because: Patient has SOB, Limited ability to care for self I certify that my clinical findings support that this patient is homebound because: Hx COPD - exertion dyspnea/weakness, Unsafe to leave home unassisted
--- NOTE | 2017-10-31 09:31 | P.PN ---
Subjective Interval history: Nursing denies any deterioration since last night. Patient himself says he is breathing much better. Wants to go home. Physical Exam Vital signs: Vital Signs 10/30/17 12:00 10/30/17 13:27 10/30/17 14:42 Temperature 97.3 F L 97.5 F L Pulse Rate 94 H 86 84 Respiratory Rate 19 19 18 Blood Pressure 159/74 H 151/78 H Pulse Oximetry 95 95 10/30/17 15:19 10/30/17 15:35 10/30/17 16:00 Temperature 97.6 F 97.7 F 97.4 F L Pulse Rate 88 82 86 Respiratory Rate 18 18 18 Blood Pressure 141/72 H 134/69 149/72 H Pulse Oximetry 97 97 97 10/30/17 20:00 10/30/17 21:02 10/31/17 00:00 Temperature 97.9 F 97.7 F Pulse Rate 92 H 94 H 95 H Respiratory Rate 19 19 Blood Pressure 176/79 H 157/72 H Pulse Oximetry 97 96 95 10/31/17 04:00 10/31/17 08:03 Temperature 97.9 F Pulse Rate 69 74 Respiratory Rate 18 17 Blood Pressure 150/74 H Pulse Oximetry 97 97 Intake & Output 10/30/17 10/31/17 10/31/17 18:59 06:59 18:59 Intake Total 1940 / 1940 1240 / 1240 Output Total 700 / 700 1200 / 1200 Balance 1240 / 1240 40 / 40 Weight 70.4 kg Intake: IV 1000 / 1000 1000 / 1000 NS Inj 1,000 ML @ 75 mls/hr IV. 1000 / 1000 1000 / 1000 CONT .[id number] [facility] Rx#:[id number] Oral 940 / 940 240 / 240 Output: Urine 700 / 700 1200 / 1200 Narrative: Near complete resolution of erythema of left foot, nontender to palpation Wheezing heard over bilateral lung mari with diminished breath sounds at the bases which I believe is chronic, nasal cannula in nose Results - Labs CBC & Chem 7: 10/30/17 04:32 10/31/17 05:49 Laboratory Results - last 24 hr 10/30/17 10/31/17 15:16 05:49 Sodium 144 Potassium 4.1 Chloride 110 H Carbon Dioxide 22.8 Anion Gap 11 BUN 41 H Creatinine 1.44 H Estimated GFR 46 L Random Glucose 223 H Calcium 9.0 Pleural RBC 3638 H Pleural Nuc Cells 206 H Pleural Neutrophils 1 Pleural Lymphocytes 80 Pleural Monocytes 15 Pleural Histocytes 2 Pleural Mesothelial 2 Microbiology 10/30/17 15:16 Fluid - Pleural fluid Gram Stain - Final 10/29/17 13:15 Blood - Peripheral Aerobic Blood Culture - Preliminary No growth in 1 day 10/29/17 13:15 Blood - Peripheral Anaerobic Blood Culture - Preliminary No growth in 1 day 10/29/17 13:00 Blood - Peripheral Aerobic Blood Culture - Preliminary No growth in 1 day 10/29/17 13:00 Blood - Peripheral Anaerobic Blood Culture - Preliminary No growth in 1 day - Imaging Impressions Chest X-Ray 10/30/17 00:00 CONCLUSION: No pneumothorax on the left status post thoracentesis. Chest X-Ray 10/30/17 00:00 CONCLUSION: 1. Probable small left pleural effusion. 2. Multiple nodular densities 6 mm or less in both lungs. Thoracentesis Ultrasound 10/30/17 00:00 CONCLUSION: 1. Only 4 cc of straw-colored fluid aspirated for diagnostic purposes. Assessment and Plan - Assessment (1) COPD (chronic obstructive pulmonary disease) with acute bronchitis Code(s): J44.0 - Chronic obstructive pulmonary disease with acute lower respiratory infection; J20.9 - Acute bronchitis, unspecified Status: Acute (2) Cellulitis of left ankle Code(s): L03.116 - Cellulitis of left lower limb Status: Acute - Plan Patient is an 88-year-old male with primary medical history of COPD, HTN, lung cancer with thoracotomy, prostate disorder who came into the hospital for evaluation of left ankle erythema, edema, pain. Cellulitis -Significantly improving, I believe the clindamycin the patient may have been under dosing himself with the clindamycin as well as having a lower strength of 150 mg. Stable to be discharged on 300 mg of clindamycin 4 times daily. Blood cultures negative. JEFFREY on CKD -Improved significantly with IV fluids. Patient received education on appropriate technique administration for inhaler/ nebulizers for his home usage of albuterol and Symbicort. Patient has been maximal benefit from hospitalization is clinically stable for discharge. We will discharge with a prednisone taper. Patient and his daughter was at the bedside were extensively counseled on compliance with oxygen supplementation continuously as well as medications.
[2017-10-31] MEDS: Senna/Docusate Sodium 8.6/50 MG Tablet PO SCH (09:35)
[2017-10-31] MEDS: amLODIPine 5 MG Tablet PO SCH (09:35)
[2017-10-31] MEDS: Metoprolol Tartrate 50 MG Tablet PO SCH (09:35)
[2017-10-31] MEDS: Famotidine 20 MG Tablet PO SCH (09:36)
[2017-10-31] MEDS: Budesonide-Formoterol 160/4.5 MCG 6 GM Inhaler INH SCH (09:37)
[2017-10-31] MEDS ORDERED: Vancomycin Inj 1,250 MG in Sodium Chlor 0.9% Inj 250 ML IV.SIG SCH (16:00)
[2017-11-04] MEDS ORDERED: Pharmacy Ordered Lab Info OTHER ONE (15:45)
== END 2017-10-31 11:40 | disposition home health service (06) ==
LOC: NEPC 11:51 → NEDA 17:09 → N07 18:05
PROVIDERS: ADMIT Hospitalist; ATTEND Hospitalist